=== PATIENT | male | born 1935 | race Caucasian/White ===

== ENCOUNTER → 2017-08-10 | Outpatient (REF) ==
[~2017-08-10] MED LIST: ACTOS 45MG45 MG/TAB PO; ACTOS45 MG PO; AMITRIPTYLINE H10 M1 PO; AMOXICILLIN 50500 MG PO; ASPIR-LOW81 MG PO; ASPIRIN E.C. 8181 MG PO; ATENOLOL25 MG PO; ATENOLOL50 MG PO; AVANDIA8 MG PO; BLOOD PRESSURE MED PO; BYETTA; BYETTA 10M600 MCG/SY SC; BYETTA SQ; CALCIUM PO; CALCIUM1 CAP PO; CELEBREX; CELEBREX 200MG200 MG PO; CLINDAMYCIN300 MG PO; CYCLOBENZ5 MG PO; DIGOXIN0.25 MG PO; ELAVIL50 MG PO; EPA/GLA1 SGL PO; FISH OIL CONC1000 MG PO; FISH OIL CONCEN1 SG1 PO; FLEXERIL10 MG PO; FLOMAX; FLOMAX 0.40.4 MG/CAP PO; FLOMAX0.4 MG PO; FLOVENT 110MCG7.9 GM IH; FOLIC ACID; FOLIC ACID PO; FOLIC ACID800 MCG PO; FORTAMET500 MG PO; GLUCOPHAGE500 MG/TAB PO; HYZAAR 50-12.1 UDTAB PO; LANOXIN PO; LIDODERM PATCH TP; LISINOPRIL10 MG PO; LOVASTATIN40 MG PO; MEDROL 4MG DOSPA4 MG PO; METFORMIN ER500 MG PO; METFORMIN500 MG PO; MS CONTIN 115 MG/TAB PO; NEURONTIN300 MG/CAP PO; NIACIN PO; NIACIN500 MG PO; NIASPAN500 MG PO; NORCO 325 MG-101 TAB PO; OMEGA 31000 MG PO; PRILOSEC 20MG20 MG PO; TENORMIN 2525 MG/TAB PO; TRAMADOL; TRAMADOL50 MG PO; ULTRAM 50MG TAB50 MG PO; ULTRAM50 MG PO; VALIUM 5MG T5 MG/TAB PO; VITAMIN D 400400 IU PO; VITAMINC1000TA PO; [UNRECOGNIZED DRUG - OTHER] PO; [UNRECOGNIZED DRUG - OTHER] PO
== END ==
LOC: ZLAB.WCH 18:02
DX: Z01.89 Encounter for other specified special examinations (principal)

== ENCOUNTER → 2017-08-25 | Outpatient (REF) ==
[2017-08-25 19:40] LABS: PSA-TOTAL 2.07 ng/mL (0-4)
[2017-08-25 20:50] LABS: THYROID STIMULATING HORMONE 1.98 uIU/mL (0.465-4.680)
== END ==
LOC: ZLAB.WCH 18:13
PROVIDERS: Internal Medicine
DX: Z01.89 Encounter for other specified special examinations (principal)
CPT/HCPCS: G0103

== ENCOUNTER 2017-10-26 19:32 | Emergency (ER) | payer MEDICARE, OTHER ==
[~2017-10-26] VITALS: Ht 180.3 cm; Wt 106.8 kg
[2017-10-26 19:39] VITALS: BP 145/83; PULSE 78; TEMP 97.9
[2017-10-26] MEDS ORDERED: ZOLOFT 50MG50 MG PO (20:16)
[2017-10-26] MEDS ORDERED: FLEXERIL5 MG PO (20:19)
[2017-10-26] MEDS ORDERED: MYCOLOG CREAM 115 GM TP (20:20)
== END 2017-10-26 21:10 | disposition home or self-care (01) ==
LOC: COL.ER 19:32
DX: S62.631A Displaced fracture of distal phalanx of left index finger, initial encounter for closed fracture (principal); I10 Essential (primary) hypertension; F17.220 Nicotine dependence, chewing tobacco, uncomplicated; Z79.82 Long term (current) use of aspirin; Z79.84 Long term (current) use of oral hypoglycemic drugs; W22.8XXA Striking against or struck by other objects, initial encounter; Y92.009 Unspecified place in unspecified non-institutional (private) residence as the place of occurrence of the external cause

== ENCOUNTER → 2018-06-15 | Outpatient (REF) ==
[~2018-06-15] MED LIST changes: +FLEXERIL5 MG PO; +MYCOLOG CREAM 115 GM TP; +ZOLOFT 50MG50 MG PO
[2018-06-15 16:58] LABS: THYROID STIMULATING HORMONE 3.41 uIU/mL (0.465-4.680)
== END ==
LOC: ZLAB.WCH 16:00
PROVIDERS: Internal Medicine
DX: Z01.89 Encounter for other specified special examinations (principal)

== ENCOUNTER 2019-01-23 08:53 | Inpatient (IN) | payer MEDICARE, OTHER ==
[~2019-01-23] VITALS: Ht 177.8 cm; Wt 109.9 kg
[2019-01-23 09:06] VITALS: BP 115/74; PULSE 79; TEMP 98.3
[2019-01-23] MEDS ORDERED: MASON NATURAL1200 MG PO (09:36)
[2019-01-23] MEDS ORDERED: COZAAR 50MG50 MG/TAB PO (09:38)
[2019-01-23] MEDS ORDERED: HCTZ12.5TAB PO (09:42)
[2019-01-23] MEDS ORDERED: DEMADEX10 MG PO (09:42)
[2019-01-23] MEDS ORDERED: KLONOPIN 1MG1 MG PO (09:43)
[2019-01-23] MEDS ORDERED: ELIQUIS 5MG PO (11:25)
[2019-01-23 12:25] LABS: BASO # 0.1 (0.0-0.2); BASO % 0.7 % (0.0-2.0); EOS # 0.2 (0.0-0.7); EOS % 2.7 % (0-4.0); GRAN # 3.7 (1.4-6.5); GRAN % 52.8 % (42.2-75.2); HEMATOCRIT 47.5 % (42.0-52.0); HEMOGLOBIN 15.8 g/dl (13.5-18.0); LYMPH % 29.1 % (20.0-51.0); MEAN CELL VOLUME 95 fl (80.0-100.0); MEAN CORPUSCULAR HEMOGLOBIN 32 pg (27.0-31.0); MEAN CORPUSCULAR HGB CONC 33 g/dl (33.0-37.0); MEAN PLATELET VOLUME 11.3 fl (7.4-10.4); MONO % 14.4 % (1.7-9.3); PLATELET COUNT 115 K/mm3 (130-400); REDCELL DISTRIBUTION WIDTH-CV 14.8 % (11.5-14.5)
[2019-01-23 12:26] VITALS: BP 96/49; PULSE 71; TEMP 97.8
[2019-01-23 12:38] LABS: ALBUMIN 3.6 gm/dL (3.5-5.0); BILIRUBIN,TOTAL 1.7 mg/dL (0.0-1.0); CALCIUM 8.6 mg/dL (8.4-10.2); CREATININE, serum 1.7 (0.66-1.25); MAGNESIUM 1.9 mg/dL (1.6-2.3); POTASSIUM 3.4 mmol/L (3.4-5.0); TOTAL PROTEIN 7.4 gm/dL (6.4-8.2)
[2019-01-23 12:46] LABS: INR 1.3 (0.8-3.0); PROTHROMBIN TIME 15.6 SECONDS (9.7-12.8)
[2019-01-23 15:58] VITALS: BP 113/62; PULSE 76; TEMP 97.7
[2019-01-23 19:55] VITALS: BP 107/48; PULSE 79; TEMP 98.3
[2019-01-23 20:55] VITALS: BP 123/71
[2019-01-23 23:43] VITALS: BP 112/57; PULSE 77; TEMP 98.1
[2019-01-24 03:11] VITALS: BP 85/33; BP 96/62; PULSE 76; TEMP 98.2
[2019-01-24 06:31] LABS: BASO # 0.1 (0.0-0.2); BASO % 0.7 % (0.0-2.0); EOS # 0.3 (0.0-0.7); EOS % 3.9 % (0-4.0); GRAN # 4.1 (1.4-6.5); GRAN % 53.6 % (42.2-75.2); HEMATOCRIT 47.4 % (42.0-52.0); HEMOGLOBIN 16.2 g/dl (13.5-18.0); LYMPH # 2.2 (1.2-3.4); LYMPH % 28.4 % (20.0-51.0); MEAN CELL VOLUME 94 fl (80.0-100.0); MEAN CORPUSCULAR HEMOGLOBIN 32 pg (27.0-31.0); MEAN CORPUSCULAR HGB CONC 34 g/dl (33.0-37.0); MEAN PLATELET VOLUME 11.5 fl (7.4-10.4); MONO % 13.1 % (1.7-9.3); PLATELET COUNT 117 K/mm3 (130-400); RED BLOOD COUNT 5.06 M/mm3 (4.20-5.60); REDCELL DISTRIBUTION WIDTH-CV 14.8 % (11.5-14.5)
[2019-01-24 06:36] LABS: INR 1.2 (0.8-3.0); PROTHROMBIN TIME 14.6 SECONDS (9.7-12.8)
[2019-01-24 06:40] LABS: CALCIUM 8.6 mg/dL (8.4-10.2); CREATININE, serum 1.55 (0.66-1.25); MAGNESIUM 1.7 mg/dL (1.6-2.3); POTASSIUM 3.7 mmol/L (3.4-5.0)
[2019-01-24 08:48] VITALS: BP 92/49; PULSE 68; TEMP 98
[2019-01-24 11:45] VITALS: BP 139/93; PULSE 70
[2019-01-24 17:45] VITALS: BP 96/46; PULSE 50; TEMP 98.1
[2019-01-24 19:23] VITALS: BP 146/79; PULSE 50; TEMP 98.1
[2019-01-24 22:57] VITALS: BP 106/51; PULSE 74; TEMP 98.5
[2019-01-25 04:09] VITALS: BP 122/71; PULSE 79; TEMP 98.1
[2019-01-25 06:27] LABS: BASO # 0.1 (0.0-0.2); BASO % 0.6 % (0.0-2.0); EOS # 0.2 (0.0-0.7); EOS % 2.5 % (0-4.0); GRAN # 4.4 (1.4-6.5); GRAN % 57.3 % (42.2-75.2); HEMATOCRIT 47.9 % (42.0-52.0); HEMOGLOBIN 16.5 g/dl (13.5-18.0); LYMPH % 25.8 % (20.0-51.0); MEAN CELL VOLUME 93 fl (80.0-100.0); MEAN CORPUSCULAR HEMOGLOBIN 32 pg (27.0-31.0); MEAN CORPUSCULAR HGB CONC 34 g/dl (33.0-37.0); MONO % 13.5 % (1.7-9.3); PLATELET COUNT 118 K/mm3 (130-400); RED BLOOD COUNT 5.17 M/mm3 (4.20-5.60); REDCELL DISTRIBUTION WIDTH-CV 14.5 % (11.5-14.5)
[2019-01-25 06:39] LABS: CALCIUM 9.1 mg/dL (8.4-10.2); CREATININE, serum 1.44 (0.66-1.25); MAGNESIUM 1.8 mg/dL (1.6-2.3); POTASSIUM 3.5 mmol/L (3.4-5.0)
[2019-01-25 09:07] VITALS: BP 128/55; PULSE 51; TEMP 98.4
[2019-01-25] MEDS ORDERED: BETAPACE 120MG120 MG PO (10:52)
[2019-01-25] MEDS ORDERED: CEPHALEXIN500 M1 PO (10:54)
== END 2019-01-25 12:55 | disposition home or self-care (01) | DRG 262 ==
LOC: MEDICAL 08:53
PROVIDERS: ADMIT Internal Medicine Cardiovascular Disease
PROC: 0JH632Z Insertion of Monitoring Device into Chest Subcutaneous Tissue and Fascia, Percutaneous Approach (ICD-10-PCS; principal; 2019-01-24)
PROC: 5A2204Z Restoration of Cardiac Rhythm, Single (ICD-10-PCS; 2019-01-24)
DX: I48.0 Paroxysmal atrial fibrillation (principal); I34.0 Nonrheumatic mitral (valve) insufficiency; I10 Essential (primary) hypertension; I71.4 Abdominal aortic aneurysm, without rupture; I83.90 Asymptomatic varicose veins of unspecified lower extremity; Z79.01 Long term (current) use of anticoagulants; Z88.5 Allergy status to narcotic agent; Z88.1 Allergy status to other antibiotic agents
CPT/HCPCS: C1764; J2704

== ENCOUNTER 2019-02-14 10:10 | Day surgery (SDC) | payer MEDICARE, OTHER ==
[~2019-02-14] VITALS: Ht 177.8 cm; Wt 108.5 kg
[~2019-02-14 10:10] MED LIST changes: +BETAPACE 120MG120 MG PO; +CEPHALEXIN500 M1 PO; +COZAAR 50MG50 MG/TAB PO; +DEMADEX10 MG PO; +ELIQUIS 5MG PO; +HCTZ12.5TAB PO; +KLONOPIN 1MG1 MG PO; +MASON NATURAL1200 MG PO
[2019-02-14 10:44] VITALS: BP 119/60; PULSE 67; TEMP 99.3
[2019-02-14] MEDS ORDERED: BETAPACE 120MG120 MG PO (10:44)
[2019-02-14] MEDS ORDERED: GLUCOPHAGE XR500 M1 PO (10:51)
--- NOTE | 2019-02-14 11:05 | NUR ---
CV cancelled per Dr. Jacobs. Pt discharged per ambulation with nurse and .
== END 2019-02-14 12:14 | disposition home or self-care (01) ==
LOC: COL.CAR 10:10
DX: I48.0 Paroxysmal atrial fibrillation (principal); I34.0 Nonrheumatic mitral (valve) insufficiency; I10 Essential (primary) hypertension; I49.3 Ventricular premature depolarization; R60.0 Localized edema; Z79.01 Long term (current) use of anticoagulants; Z88.1 Allergy status to other antibiotic agents; Z88.6 Allergy status to analgesic agent; Z88.8 Allergy status to other drugs, medicaments and biological substances; Z79.82 Long term (current) use of aspirin; Z79.51 Long term (current) use of inhaled steroids; Z79.84 Long term (current) use of oral hypoglycemic drugs; Z79.891 Long term (current) use of opiate analgesic; Z82.49 Family history of ischemic heart disease and other diseases of the circulatory system; Z53.8 Procedure and treatment not carried out for other reasons